=== PATIENT | male | born 1950 | race Caucasian/White ===

== ENCOUNTER 2021-02-12 11:40 | Emergency (ER) | payer OTHER ==
[~2021-02-12] VITALS: Ht 167.6 cm; Wt 66.2 kg
[2021-02-12 11:40] VITALS: BP_SYST 150
--- NOTE | 2021-02-12 11:40 | NUR ---
BROUGHT BACK TO BED #4 AND TRIAGED. REPORT GIVEN TO DEBORA
--- NOTE | 2021-02-12 12:05 | NUR ---
Pt. bib with a laceration to left forearm, no bleeding at this time noted, pt. states was working in yard and missed a step and fell onto some bricks, has small superficial scratch behind left ear from same fall, did not have any LOC.
--- NOTE | 2021-02-12 12:17 | NUR ---
ER at bedside examining patient.
[2021-02-12] MEDS ORDERED: LIDOCAINE 2%, 20 ML MDV ONE (12:23)
[2021-02-12] MEDS ORDERED: BACITRACIN 1 GM OINT TP ONE (12:30)
[2021-02-12] MEDS ORDERED: LIDOCAINE 1% 10 MG/ML, 20 ML MDV INJ ONE (12:30)
[2021-02-12] MEDS ORDERED: DIPH-TET-PERTUS Vaccine 0.5 ML VIAL (ADACEL) I.M. ONE (12:30)
--- NOTE | 2021-02-12 12:43 | NUR ---
Patient has a 5 cm laceration to left forearm. Dr. Josue applied sutures using sterile technique. Edges well approximated. Site cleansed with betadine. Non adhesive dressing applied to site. No bleeding noted. Pt tolerated well.
[2021-02-12 13:05] VITALS: BP_SYST 138
--- NOTE | 2021-02-12 13:06 | NUR ---
Patient given written and verbal discharge instructions and verbalizes understanding. ER Dr. Josue discussed with patient the results and treatment provided. Patient in stable condition. ID arm band removed. Patient educated on pain management and to follow up with PMD. Pain Scale 0. Opportunity for questions provided and answered. Medication side effect fact sheet provided.
== END 2021-02-12 13:05 | disposition home or self-care (01) ==
LOC: SED 11:40
DX: S51.812A Laceration without foreign body of left forearm, initial encounter (principal); W18.39XA Other fall on same level, initial encounter; Y93.89 Activity, other specified; Y92.89 Other specified places as the place of occurrence of the external cause; Y99.8 Other external cause status
CPT/HCPCS: 12002; 90471; 90715; 99283; J2001